=== PATIENT | female | born 1975 | race Caucasian/White ===

== ENCOUNTER 2016-09-22 08:00 | Day surgery (SDC) | payer BC ==
[~2016-09-22 08:00] MED LIST: RINGERS SOLUTION,LACTATED 1,000 ML IV PRN
--- OUTSIDE RECORDS SUMMARY | 2016-09-22 08:04 | XMS REPORT | Continuity of Care Document ---
:1975 Author Organization [facility] ([facility]) Address [address] [place] [address] Phone [phone] Care Team Providers Name Role Phone Lizette Riggs Primary Care Provider [phone] Source Comments This disclosure is being made pursuant to the Care Everywhere program, applicable federal and state laws, and may not contain all informaitonavailable regarding this patient.[facility] ([facility]) Active Allergies and Adverse Reactions Allergen Noted Date Severity Reactions Comments Sulfadoxine Fever,Urticaria (Hives) Current Medications Prescription Sig. Disp. Refills Start Date End Date Status venlafaxine 150 mg XR Take 300 mg by Active tablet mouth daily. lamoTRIgine 100 mg tablet 1 tab am2 tabs Active evening ALPRAZolam 1 mg tablet Take 1 mg by mouth Active 3 times daily as needed. HYDROcodone-acetaminophen Take 1 Tab by mouth Active 5-325 mg per tablet every 4 hours as needed. topiramate 100 mg tablet Take 100 mg by Active mouth 2 times daily. SUMAtriptan 50 mg tablet Take 50 mg by mouth Active daily as needed. May repeat in 2 hours if needed. aspirin 81 mg EC tablet Take 81 mg by mouth Active daily traZODone 100 mg tablet Take 300 mg by Active mouth at bedtime busPIRone 10 mg tablet Take 10 mg by mouth Active 3 times daily nitroglycerin 0.[address] 0.4 mg under Active tablet the tongue every 5 minutes as needed meloxicam 7.5 mg tablet Take 7.5 mg by Active mouth 2 times daily propranolol 10 mg tablet Take 10 mg by mouth Active 3 times daily. aripiprazole 15 mg tablet Take 15 mg by mouth Active daily. multivitamin tablet Take 1 tablet by Active mouth daily. 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 Overview: Followed by [facility] Cardiothoracic Surgery, next CT planned in 2018 Cellulitis and abscess of unspecified site 07/29/2006 Swelling, mass, or lump in chest 04/16/2006 Social History Tobacco Use Types Packs/Day Years Used Date Light Tobacco Smoker Cigarettes 1 20 Quit: 10/25/2011 Last Filed Vital Signs Vital Sign Reading Time Taken Blood Pressure 120/80 10/23/2015 1:40 PM CDT Pulse 80 10/23/2015 1:40 PM CDT Temperature 37 C (98.6 F) 10/24/2014 11:22 AM CDT Respiratory Rate 20 08/01/2006 2:00 PM [employer] Height 1.727 m (5' 8") 04/22/2015 10:21 AM CDT Weight 93 kg (205 lb 0.4 oz) 10/23/2015 1:40 PM CDT Body Mass Index 31.18 10/23/2015 1:40 PM CDT Oxygen Saturation 100% 10/24/2014 11:22 AM CDT Plan of Care Health Maintenance Due Date Last Done Comments Hepatitis B Vaccine (1 of 3 - Primary Series) 1975 Tdap Vaccine 1988 Lipid Disorder Screening 09/20/1995 MMR Vaccine 09/20/1995 Td Vaccine 09/20/1995 Pneumococcal Vaccine (1 of 1 - PPSV23) 1996 Cervical Cancer Screening 09/20/2007 Influenza Vaccine: Seasonal (#1) 02/10/2016 Results from Last 3 Months Not on file
[2016-09-22 08:28] LABS: Hematocrit 38.9 % (37.0-47.0); Mean Cell Volume 91.7 fl (78-100); Mean Corpuscular Hemoglobin 30.7 pg (27-31); Mean Corpuscular Hgb Conc 33.4 g/dl (32-36); Mean Platelet Volume 10.1 fl (6.0-9.5); Neutrophil # 3.1 K/mm3 (1.3-6.0); Neutrophil % 58.4 % (42-75.0); Platelet Count 185 K/mm3 (150-450); Red Blood Count 4.24 M/mm3 (4.2-5.4); Red Cell Distribution Width 13.1 % (11.5-14.0); White Blood Count 5.2 K/mm3 (4.0-10.5)
[2016-09-22] MEDS ORDERED: RINGERS SOLUTION,LACTATED 1,000 ML IV ONE (08:29)
--- NOTE | 2016-09-22 10:10 | OR ---
Operative Report - Dictated Report Narrative: Operative Report 09/22/16 Hysteroscopy Preoperative Diagnosis: Metrorrhagia Postoperative Diagnosis: Metrorrhagia, Cervical Stenosis, Endometrial Adhesions Procedure: Hysteroscopy Surgeon: Maya Kamara M.D. Anesthesia: Guy Lemus CRNA, IV sedation Findings: Cervical Stenosis. Uterine sound with hysteroscope 6.5 cm. Endometrial adhesions present, no cavity present. Fluids: 200 ml EBL: Minimal Drains: None Complications: None Condition: Stable Pathology: None Procedure: The patient was taken to the operating room with IV fluids running. She was placed in the dorsal lithotomy position after anesthesia was induced. A bivalve speculum was placed in the vagina. The anterior lip of the cervix was grasped with a single-tooth tenaculum. Uterine sound was unable to be passed. 2 mm hysteroscope was introduced into the endocervical canal and used to traverse the endocervical canal. There was no clear endometrial cavity identified. There was significant scarring from endometrial ablation. Uterine sound was measured with hysteroscope 6.5 cm. Curettage was not possible due to the scarring of the endometrium and therefore dilatation was not performed. The hysteroscope was removed. The single-tooth tenaculum was removed. Sites were hemostatic. The speculum was removed from the vagina. Sponge counts were correct 2. The patient tolerated the procedure well.
[2016-09-22 10:33] VITALS: BP 121/80
== END 2016-09-22 08:01 | disposition home or self-care (01) ==
LOC: AMB 08:00
PROVIDERS: ATTEND Obstetrics & Gynecology
PROC: 0UJD8ZZ Inspection of Uterus and Cervix, Via Natural or Artificial Opening Endoscopic (ICD-10-PCS; principal; 2016-09-22 09:00)
DX: N88.2 Stricture and stenosis of cervix uteri (principal); N73.6 Female pelvic peritoneal adhesions (postinfective); N92.1 Excessive and frequent menstruation with irregular cycle; E78.5 Hyperlipidemia, unspecified; D64.9 Anemia, unspecified; M19.90 Unspecified osteoarthritis, unspecified site; F41.9 Anxiety disorder, unspecified; F32.9 Major depressive disorder, single episode, unspecified; E66.01 Morbid (severe) obesity due to excess calories; Z68.37 Body mass index [BMI] 37.0-37.9, adult; F17.210 Nicotine dependence, cigarettes, uncomplicated